=== PATIENT | female | born 1985 | race African-American/Black ===

== ENCOUNTER 2024-03-20 16:49 | Emergency (ER) | payer BC ==
[2024-03-20] MEDS ORDERED: Ondansetron PF 4 MG/2 ML Vial ONE (17:51)
[2024-03-20 18:02] LABS: BHCG - Serum POSITIVE (NEGATIVE); Pregs Control Background? CLEAR/WHITE (CLR/WHITE); Pregs Control Bar Appear? YES (CONTROL BAR)
[2024-03-20 18:03] LABS: #Basophils 0.03 10x3/uL (0.0-0.2); #Eosinphils 0.07 10x3/uL (0.0-0.5); #Monocytes 0.33 10x3/uL (0.0-1.1); #Neutrophils 3.15 10x3/uL (1.5-8.4); %Basophils 0.5 % (0.0-2.0); %Eosinophils 1.1 % (0.0-6.0); %Lymphocytes 41.6 % (18.0-47.0); %Monocytes 5.3 % (0.0-10.0); Hematocrit 39.1 % (34.9-44.5); Hemoglobin 12.4 g/dL (12.0-15.5); Mean Corpuscular HGB CONC 31.7 g/dL (32.0-36.0); Mean Corpuscular Hemoglobin 26.4 pg (27.0-33.0); Mean Corpuscular Volume 83.4 fL (81.6-98.3); Mean Platelet Volume 11.9 fL (7.4-10.4); Platelet Count 271 10x3/uL (150-450); RBC Distribution Width 15.3 % (11.5-14.5); Red Blood Cell (RBC) Count 4.69 10x6/uL (3.90-5.03); White Blood Cell (WBC) Count 6.2 10x3/uL (3.5-10.5)
[2024-03-20 18:07] LABS: ALT (SGPT) 10 U/L (8-55); AST (SGOT) 16 U/L (5-34); Albumin 3.3 g/dL (3.5-5.0); Alkaline Phosphatase 52 U/L (40-110); Anion Gap 13 mmol/L (10-20); BUN (Urea Nitrogen) 6 mg/dL (7.0-18.7); Bilirubin, Total 0.4 mg/dL (0.2-1.2); Calc. Creatinine Clearance 0 mL/min (70-130); Calcium 9.2 mg/dL (7.8-10.44); Carbon Dioxide 21 mmol/L (22-29); Chloride 103 mmol/L (98-107); Estimated GFR 109; Globulin 3.5 g/dL (2.4-3.5); Glucose 105 mg/dL (70-105); Lipase 16 U/L (8-78); Magnesium 1.8 mg/dL (1.6-2.6); Potassium 3.5 mmol/L (3.5-5.1); Protein, Total 6.8 g/dL (6.0-8.3); Sodium 133 mmol/L (136-145)
[2024-03-20] MEDS ORDERED: Doxylamine 25 MG TAB PO SCH (19:15)
[2024-03-20] MEDS ORDERED: pyridOXINE 50 MG (B6) TAB PO SCH (19:15)
[2024-03-20 21:30] LABS: Bilirubin Neg (Negative); Blood, Urine Negative (Negative); Clarity Clear (Clear); Glucose, Urine (Dipstick) Normal (Negative); Ketone, Urine Negative (Negative); Leukocyte Negative (Negative); Nitrite Negative (Negative); Protein, Urine (Dipstick) Negative (Neg-Trace); Specific Gravity, Urine 1.005 (1.005-1.030); Urobilinogen Normal mg/dL (Less than 2)
[2024-03-20 22:47] LABS: Bacteria/HPF Rare-Few HPF (None Seen); CAUTI Indications for Culture Pregnancy; RBC/HPF None Seen HPF (0-3); Squamous Epithelial 0-3 HPF (0-3); WBC/HPF None Seen HPF (0-3)
[2024-03-20 22:49] LABS: Urine Culture Reflex Yes Yes
== END 2024-03-20 23:05 | disposition home or self-care (01) ==
LOC: CSHERS 16:49
DX: O21.9 Vomiting of pregnancy, unspecified (principal); Z3A.08 8 weeks gestation of pregnancy
CPT/HCPCS: 76856; 80053; 81001; 83690; 83735; 84702; 84703; 85025; 87086; 96374; J2405

== ENCOUNTER 2024-04-18 09:41 | Day surgery (SDC) | payer BC ==
[2024-04-15 10:04] VITALS: BMI 39.4
[2024-04-18 10:35] LABS: Hematocrit 40.1 % (34.9-44.5); Hemoglobin 12.5 g/dL (12.0-15.5); Mean Corpuscular HGB CONC 31.2 g/dL (32.0-36.0); Mean Corpuscular Hemoglobin 26.4 pg (27.0-33.0); Mean Corpuscular Volume 84.6 fL (81.6-98.3); Mean Platelet Volume 11.1 fL (7.4-10.4); Platelet Count 231 10x3/uL (150-450); RBC Distribution Width 15.1 % (11.5-14.5); Red Blood Cell (RBC) Count 4.74 10x6/uL (3.90-5.03); White Blood Cell (WBC) Count 4.6 10x3/uL (3.5-10.5)
[2024-04-18] MEDS ORDERED: PROPOFOL 20 ML ONE ×2 (11:04→11:05)
[2024-04-18] MEDS ORDERED: fentaNYL 50 mcg/mL 1 mL Vial ONE ×4 (11:05→13:48)
[2024-04-18] MEDS ORDERED: Lidocaine 1% PF 5 ML VIAL ONE (11:06)
[2024-04-18] MEDS ORDERED: Midazolam HCl 2 mg/2 ml Vial ONE (11:26)
[2024-04-18] MEDS ORDERED: CEFAZOLIN 2 GM VIAL ONE (11:54)
[2024-04-18] MEDS ORDERED: Rocuronium Bromide 10 MG/ML (10ML VIAL) ONE (12:06)
[2024-04-18] MEDS ORDERED: Ondansetron PF 4 MG/2 ML Vial ONE (12:17)
[2024-04-18] MEDS ORDERED: Dexamethasone 20 MG/5 ML VIAL ONE (12:17)
[2024-04-18] MEDS ORDERED: Esmolol 100 MG/10 ML VIAL ONE (12:27)
[2024-04-18] MEDS ORDERED: Methylergonovine 0.2 MG/ML VIAL ONE (12:31)
[2024-04-18] MEDS ORDERED: SUGAMMADEX SODIUM 200 MG/2 ML VIAL ONE (12:38)
[2024-04-18] MEDS ORDERED: Silver Nitrate Application 1 EACH ONE (12:41)
[2024-04-18] MEDS ORDERED: Meperidine HCl/PF 25 MG (1 mL) VIAL ONE (13:16)
[2024-04-18] MEDS ORDERED: HYDROcodone/Acetaminophen 5/325 mg Tablet ONE (14:11)
== END 2024-04-18 14:55 | disposition home or self-care (01) ==
LOC: CSHSDC 09:41
PROVIDERS: ATTEND Obstetrics & Gynecology
PROC: 10A07ZZ Abortion of Products of Conception, Via Natural or Artificial Opening (ICD-10-PCS; principal; 2024-04-18)
DX: O02.1 Missed abortion (principal); G40.909 Epilepsy, unspecified, not intractable, without status epilepticus; Z79.899 Other long term (current) drug therapy
CPT/HCPCS: 36415; 85027; 86900; 86901; 88305; J1100; J2175; J2210; J2250; J2405; J2704; J3010